=== PATIENT | male | born 1985 | race Caucasian/White ===

== ENCOUNTER 2021-08-24 14:08 | Emergency (ER) | payer OTHER ==
[~2021-08-24] VITALS: Ht 172.7 cm; Wt 91.8 kg
--- NOTE | 2021-08-24 15:00 | NUR ---
ux lead: Pt to room via WC from lobby at this time.
[2021-08-24] MEDS ORDERED: PLEASE ENTER ALLERGIES MC SCH (16:00)
[2021-08-24] MEDS ORDERED: DEXAMETHASONE 4 MG/ML, 1ML IVPush ONE (16:00)
[2021-08-24] MEDS ORDERED: SODIUM CHLORIDE FLUSH 10ML SYR IVF ONE (16:00)
[2021-08-24] MEDS ORDERED: FILTER 0.22 MICRON IV ONE (16:00)
[2021-08-24] MEDS ORDERED: CASIRIVIMAB 600 MG, IMDEVIMAB (REGN10987) 600 MG in SODIUM CHLORIDE 0.9% 250 ML IVPB ONE (16:00)
[2021-08-24] MEDS ORDERED: DEXAMETHASONE 4 MG/ML, 1ML ONE (16:01)
[2021-08-24 18:15] VITALS: BP 110/75
== END 2021-08-24 19:17 | disposition home or self-care (01) ==
LOC: ED 14:13
DX: U07.1 COVID-19 (principal); J06.9 Acute upper respiratory infection, unspecified; R94.31 Abnormal electrocardiogram [ECG] [EKG]
CPT/HCPCS: 71045; 93005; 96374; 99284; J1100; M0243